=== PATIENT | female | born 1995 | race Caucasian/White ===

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

== ENCOUNTER 2018-02-09 11:29 | Day surgery (SDC) | payer OTHER ==
[2018-02-01 10:55] VITALS: BMI 22.1
--- NOTE | 2018-02-02 09:00 | HP ---
Admitting History and Physical - Primary Care Physician PCP: John Berry - Admission Chief Complaint: left breast mass History of Present Illness: Patient is a 22 yo female who was noted to have a left breast mass on exam. Patient does have a h/o similar findings in the right and underwent an excisional bx 09/2016 which was c/w a fibroadenoma. Patient is presenting for a left breast excisional bx. History Source: Patient Limitations to Obtaining History: No Limitations - Past Medical History ...LMP: 01/07/18 - Past Surgical History Past Surgical History: Yes: Tonsillectomy (a nd adenoids) - Smoking History Smoking history: Never smoked Have you smoked in the past 12 months: No - Alcohol/Substance Use Hx Alcohol Use: Yes (social) Home Medications - Allergies Allergies/Adverse Reactions: Allergies Allergy/AdvReac Type Severity Reaction Status Date / Time No Known Drug Allergies Allergy Verified 02/01/18 10:46 - Home Medications Home Medications: Ambulatory Orders Norgestimate-Ethinyl Estradiol [Sprintec 28 Day Tablet] 1 each PO DAILY Family Disease History - Family Disease History Family Disease History: CA: Mother (cervical ca) Other Family History: maternal great aunt-ovarian cancer at 54 Review of Systems - Review of Systems Constitutional: reports: No Symptoms Cardiovascular: reports: No Symptoms Respiratory: reports: No Symptoms Physical Examination Constitutional: Yes: Well Nourished, Calm Breast(s): Yes: Other (Small B cup breasts with a well healed right breast incision. A 1.5 cm mass was noted in the left 3 oclock periareolar region which is freely mobile and smoothly marginated. No other masses or suspicious adenopathy noted.) Problem List - Problems (1) Left breast mass Code(s): N63.20 - UNSPECIFIED LUMP IN THE LEFT BREAST, UNSPECIFIED QUADRANT Assessment/Plan Plan: Left breast excisional biopsy
[2018-02-09] MEDS ORDERED: ONDANSETRON 4 MG/2 ML VIAL IVPUSH PRN (13:08)
[2018-02-09] MEDS ORDERED: KETOROLAC TROMETHAMINE 30 MG/1 ML VIAL IVPUSH PRN (13:08)
[2018-02-09] MEDS ORDERED: DEXTROSE 5%-0.45% SALINE 1,000 ML IV SCH (13:15)
[2018-02-09] MEDS ORDERED: MIDAZOLAM HCL 2 MG/2 ML SINGLE DOSE VIAL ONE ×2 (13:36)
[2018-02-09] MEDS ORDERED: PROPOFOL 20 ML ONE ×2 (13:36→14:13)
[2018-02-09] MEDS ORDERED: GUM MASTIC/STORAX/MSAL/ALCOHOL 1 DRP DROPSBTL MC ONE (13:41)
[2018-02-09] MEDS ORDERED: LIDOCAINE 1%/EPI 1:100000 (20 ML MULTI DOSE VIAL) ONE (13:41)
[2018-02-09] MEDS ORDERED: BUPIVACAINE HCL/PF 2.5 MG/ML - 30 ML VIAL IJ ONE (13:41)
[2018-02-09] MEDS ORDERED: LIDOCAINE HCL 1% PRESERVATIVE FREE - 30ML VIAL ONE (13:41)
[2018-02-09] MEDS ORDERED: ONDANSETRON 4 MG/2 ML VIAL ONE (13:58)
[2018-02-09] MEDS ORDERED: DEXAMETHASONE SOD PHOSPHATE 4 MG/1 ML VIAL ONE (13:58)
[2018-02-09 14:58] VITALS: PULSE 88; TEMP 98
[2018-02-09] MEDS ORDERED: KETOROLAC TROMETHAMINE 30 MG/1 ML VIAL ONE (15:06)
[2018-02-09 15:17] VITALS: BP 124/72
--- NOTE | 2018-02-09 15:57 | OP ---
DATE OF OPERATION: 02/09/2018 PREOPERATIVE DIAGNOSIS: Left breast mass. POSTOPERATIVE DIAGNOSIS: Left breast mass. PROCEDURE: Left breast excisional biopsy. ANESTHESIA: Local with IV sedation. PRIMARY SURGEON: Karen Berry MD CARDIAC NURSE: YEN Bingham COMPLICATIONS: None. Briefly, the patient is a 22-year-old, nulliparous white female with no family history of breast cancer. Her maternal great-aunt from ovarian cancer at age 54, and her mother had cervical cancer. Her maternal uncle had leukemia. The patient has a history of fibroadenomas and underwent a right breast excisional biopsy back in September 2016, for a benign fibroadenoma. She has now noted a left breast rebeka-areolar mass in the 3 o'clock position, measuring about 1.5 cm. Ultrasound showed this to be consistent with a fibroadenoma, but given its size and location, excision was recommended. She was brought in for the procedure on February 03, 2018. In the holding area, site verification was made, and informed consent was obtained. She was brought into the operating room and laid on the OR table in a supine position. Venodynes were placed on the lower extremities. She did not receive any antibiotics given the small nature of the excision. The left breast was sterilely prepped and draped in the usual fashion. Once she received sedation with propofol, 1% lidocaine was given directly around the rebeka-areolar region of the left breast 3 o'clock aspect, and a curvilinear incision was made around the rebeka-areolar aspect of the left breast. Dissection was undertaken around the palpable density which was easily from the surrounding tissue and completely removed intact. The was sent to Pathology in formalin. Hemostasis was achieved. The breast parenchyma was then reapproximated using interrupted 3-0 Vicryl suture. The skin was closed using interrupted 3-0 deep dermal Vicryl suture and a running 4-0 subcuticular Biosyn suture. Dermabond was placed over the wound. Compressive dressing was placed over this. The patient tolerated the procedure well, without difficulty and was awake and alert at the end of the procedure. She will be brought back to Ambulatory Surgery postoperatively, and she will be discharged home the same day once discharge criteria are met. She is to follow up in the office in 1 week for formal wound and pathology check. All sponge and needle counts were correct at the end of the case, and estimated blood loss was minimal. KAREN BERRY M.D. [id number]
--- NOTE | 2018-02-12 16:47 | PATH ---
Surgical Pathology Report Patient Name: YAMILET MCADAMS Med. Rec. #: [id number] /Age/Gender: 1995 (Age: 22) / F Account: [id number] Location: [facility] AMBULATORY Taken: 02/09/2018 Received: 02/09/2018 Reported: 02/12/2018 Physicians: John Berry M.D. Specimen(s) Received LEFT BREAST MASS Clinical History Ultrasound findings: Probably benign, fibroadenoma Final Diagnosis BREAST, LEFT, MASS, EXCISION: FIBROADENOMA. Electronically Signed Viola Kenyon M.D. Gross Description Received in formalin labeled "left breast mass," is a 2.4 x 2.3 x 1.8 cm chávez, unoriented, rubbery mass. There is no needle localization wire present. There is no skin present. The outer surface is smooth. The specimen is inked blue and serially sectioned. Sectioning reveals homogeneous hcávez, rubbery parenchyma. No areas of hemorrhage or necrosis are identified. The specimen is entirely and sequentially submitted in 6 cassettes. Total formalin fixation time: Approximately 6 hours 02/10/2018 [facility]02/10/2018
== END 2018-02-09 16:00 | disposition home or self-care (01) ==
LOC: FASU 11:29
PROVIDERS: ATTEND Surgery Surgical Oncology
PROC: 0HBU0ZX Excision of Left Breast, Open Approach, Diagnostic (ICD-10-PCS; principal; 2018-02-09 14:05)
DX: D24.2 Benign neoplasm of left breast (principal); N63.20 Unspecified lump in the left breast, unspecified quadrant
CPT/HCPCS: 84703; 88307-TC